=== PATIENT | male | born 1970 | race Caucasian/White ===

== ENCOUNTER 2024-03-25 08:35 | Outpatient (AMB) | payer BC, SELFPAY ==
--- NOTE | 2024-03-25 08:38 | AM.OFFWIN_ITS ---
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 He has bought some oily drops in the past but has not been using them. He states this has been going on for a couple of weeks now but it is gotten worse in the last few days. He has no complaints about his left ear. He denies any fevers. [facility] Social History Patient Tobacco Use Status: Current everyday Tobacco user Review of Systems Const All systems reviewed & are unremarkable except as noted in HPI and below Physical Exam Vital Signs: Last Vital Signs Temp 97.6 F 03/25/24 08:39 Pulse 93 03/25/24 08:39 BP 120/78 03/25/24 08:39 Pulse Ox 98 03/25/24 08:39 Oxygen Delivery Method Room Air 03/25/24 08:39 BMI result Body Mass Index 23.3 Const General: cooperative, healthy appearing and comfortable Nutritional Appearance: average body habitus Orientation/consciousness: patient oriented x3 Limitations: no limitations HEENT Head: Yes normal to inspection and Yes normocephalic Ears: hearing grossly normal bilaterally and unable to visualize TM (Cerumen blockage) bilaterally General nose exam: Normal external nose present Mouth: Normal oral and palatal mucosa present Resp Effort & Inspection: normal respiratory effort and able to speak in complete sentences Neuro General: patient oriented x3 Office Procedures Cerumen Removal From which ear canal was the cerumen removed: bilateral Removal: irrigation Notes: patient tolerated procedure well, no complications and ear canal clear [id number] Irrigation/Lavage Assessment & Plan Assessment & Plan (1) Impacted cerumen of both ears: Code(s): H61.23 - Impacted cerumen, bilateral Plan: Impacted cerumen of bilateral ears removed with irrigation successfully, patient tolerated procedure well; educated patient on the use of Debrox drops Plan see above Coding Level of Care Code New Pt Level 3 (82559) Diagnoses Impacted cerumen of both ears H61.23 CPT Codes Office Procedure - CPT: 49571-Fdg Irrigation/Lavage ([id number])
[2024-03-25 08:39] VITALS: BP 120/78; PULSE 93; TEMP 36.4; O2SAT 98; BMI 23.3
== END 2024-03-25 09:21 | disposition home or self-care (01) ==
PROVIDERS: PCP Internal Medicine; Visit Provider Physician Assistant
DX: H61.23 Impacted cerumen, bilateral (principal)
CPT/HCPCS: 69209; 99203